=== PATIENT | male | born 1980 | race African-American/Black ===

== ENCOUNTER 2017-04-18 14:31 | Emergency (ER) | payer SELFPAY ==
[~2017-04-18] VITALS: Ht 170.2 cm; Wt 114.0 kg
[2017-04-18] MEDS ORDERED: ONDANSETRON 4MG ODT PO STA (15:23)
[2017-04-18 16:06] LABS: CLARITY URINE CLEAR (CLEAR); COLOR URINE YELLOW (YELLOW); GLUCOSE URINE NEGATIVE (NEGATIVE); KETONES URINE 1+ (NEGATIVE); LEUKOCYTE ESTERASE URINE TRACE (NEGATIVE); NITRITE URINE NEGATIVE (NEGATIVE); OCCULT BLOOD URINE 1+ (NEGATIVE); PROTEIN URINE TRACE (NEGATIVE); SPECIFIC GRAVITY URINE 1.021 (1.005-1.030); UROBILINOGEN URINE 0.2 E.U./dL (0.2-1.0)
[2017-04-18 16:15] VITALS: BP 129/74
== END 2017-04-18 16:21 | disposition left against medical advice (07) ==
LOC: ER 14:56
DX: R10.30 Lower abdominal pain, unspecified (principal); Z87.890 Personal history of sex reassignment
CPT/HCPCS: 81001; 99283; Q0162

== ENCOUNTER 2018-04-05 18:03 | Emergency (ER) | payer SELFPAY ==
[~2018-04-05] VITALS: Ht 177.8 cm; Wt 127.0 kg
[2018-04-05] MEDS ORDERED: TETRACAINE 0.5% OPHTH DROPS 4ML OP ONE (19:00)
[2018-04-05] MEDS ORDERED: IBUPROFEN 600MG TABLET PO ONE (19:00)
[2018-04-05] MEDS ORDERED: FLUORESCEIN SODIUM 1MG/STRIP OP ONE (19:00)
[2018-04-05 20:58] VITALS: BP 0/0
== END 2018-04-05 21:15 | disposition home or self-care (01) ==
LOC: ER 18:03
DX: H20.9 Unspecified iridocyclitis (principal); H57.13 Ocular pain, bilateral; F17.200 Nicotine dependence, unspecified, uncomplicated; F12.10 Cannabis abuse, uncomplicated
CPT/HCPCS: 99283

== ENCOUNTER 2021-04-13 08:54 | Emergency (ER) | payer OTHER ==
[~2021-04-13] VITALS: Ht 172.7 cm; Wt 102.0 kg
[2021-04-13] MEDS ORDERED: TETRACAINE 0.5% OPHTH DROPS 4ML BOTHEYE ONE (11:45)
[2021-04-13] MEDS ORDERED: FLUORESCEIN SODIUM 1MG/STRIP BOTHEYE ONE (11:45)
[2021-04-13 12:35] VITALS: BP 145/85
== END 2021-04-13 12:59 | disposition home or self-care (01) ==
LOC: ER 08:54
DX: H53.8 Other visual disturbances (principal)
CPT/HCPCS: 99283